=== PATIENT | male | born 1955 | race African-American/Black ===

== ENCOUNTER 2017-11-09 17:17 | Inpatient (IN) | payer OTHER, SELFPAY ==
[~2017-11-09 17:17] MED LIST: Dexamethasone 20 MG/5 ML VIAL ONE; Lidocaine 1% PF 5 ML VIAL ONE; Ondansetron HCl/PF 4 MG/2 ML Vial ONE; PROPOFOL 200 MG/20 ML VIAL ONE; Succinylcholine Chloride 20 MG/ML 10 ml SYRINGE FS ONE
[2017-11-09] MEDS ORDERED: Ondansetron HCl/PF 4 MG/2 ML Vial IVP PRN ×2 (18:51→22:29)
[2017-11-09] MEDS ORDERED: Dextrose 50% Abboject 50 ML SYRINGE SLOW IVP PRN (18:51)
[2017-11-09] MEDS ORDERED: Dextrose 5% in Water 1,000 ML IV PRN (18:51)
[2017-11-09] MEDS ORDERED: Ondansetron ODT 4 MG TAB PO PRN (18:51)
[2017-11-09 19:05] LABS: #Lymphocytes 1.4 thou/uL (1.20-3.40); #Monocytes 0.9 thou/uL (0.11-0.59); #Neutrophils 15.4 thou/uL (1.40-6.50); %Basophils 0.3 % (0.0-1.0); %Monocytes 5.2 % (0.0-10.0); %Neutrophils 86.6 % (42.0-75.0); Hemoglobin 15.7 g/dL (14.0-18.0); Mean Corpuscular HGB CONC 34.6 g/dL (32.0-36.0); Mean Corpuscular Hemoglobin 33.4 pg (27.0-31.0); Mean Corpuscular Volume 96.7 fL (78.0-98.0); Mean Platelet Volume 7.3 fL (7.4-10.4); Platelet Count 236 thou/uL (130-400); RBC Distribution Width 12.7 % (11.5-14.5); Red Blood Cell (RBC) Count 4.68 mill/uL (4.70-6.10); White Blood Cell (WBC) Count 17.8 thou/uL (4.8-10.8)
[2017-11-09 19:25] LABS: ALT (SGPT) 21 U/L (8-55); AST (SGOT) 28 U/L (5-34); Albumin 4.7 g/dL (3.5-5.0); Alkaline Phosphatase 62 U/L (40-150); Anion Gap 18 mmol/L (10-20); BUN (Urea Nitrogen) 21 mg/dL (8.4-25.7); Bilirubin, Total 0.5 mg/dL (0.2-1.2); CK (CPK) 315 U/L (30-200); Calc. Creatinine Clearance 0 mL/min (70-130); Calcium 9.9 mg/dL (7.8-10.44); Carbon Dioxide 20 mmol/L (22-29); Chloride 105 mmol/L (98-107); Estimated GFR-MDRD 69; Glucose 110 mg/dL (70-105); Potassium 4.3 mmol/L (3.5-5.1); Protein, Total 7.7 g/dL (6.0-8.3); Sodium 139 mmol/L (136-145)
[2017-11-09] MEDS ORDERED: Sodium Bicarbonate 100 MEQ in Dextrose 5% in Water 1,000 ML IV SCH (19:30)
[2017-11-09] MEDS ORDERED: hydrALAZINE 20 MG/ML VIAL SLOW IVP PRN (19:30)
--- NOTE | 2017-11-09 20:19 | CT ---
CT LEFT UPPER EXTREMITY NONCONTRAST: 11/09/2017 HISTORY: A 62-year-old male status post acute traumatic injury to the left upper extremity. This level II trauma report was called to Dr. Cabral, by telephone, by Dr. Allison, at 7:22 p.m., on 10/17. TECHNIQUE: Level of coverage from the mid humeral diaphysis to the mid forearm. FINDINGS: There is a comminuted fracture beginning at the distal diaphysis of the humerus, extending to the dis richmond metaphysis, with significant rotation, angulation, and displacement. There are nondisplaced frac ture lucencies of the distal metaphysis, involving the lateral condyle. No disruption/step-off of th e articular surfaces involving the ulna or the radius. No dislocation. There are multifocal pockets of subcutaneous air surrounding the fracture. IMPRESSION: 1. Acute, traumatic, comminuted, significantly displaced fracture of the distal humeral metadiap hysis. 2.Subcutaneous emphysema indicates penetrating trauma also. CODE CR POS: OTONIEL
--- NOTE | 2017-11-09 20:22 | RAD ---
PORTABLE FRONTAL AND LATERAL IMAGING OF THE LEFT HUMERUS: 11/09/2017 HISTORY: Injury. Trauma. Pain. COMPARISON: None. FINDINGS: There is a comminuted distal left humerus fracture with multiple displaced osseous fragments. The fr acture appears to extend into the left elbow joint. There is subcutaneous gas at the fracture site, consistent with an open fracture. There is no evidence for dislocation of the left elbow joint. The distal fracture fragment of the distal humerus is displaced medially by at least 2-3 cm, and demonst rates proximal displacement and demonstrates medial angulation. IMPRESSION: Markedly comminuted and displaced open fracture of the distal left humerus with extension into the le ft elbow joint. POS: MUKESH
[2017-11-09] MEDS: Sodium Chloride 0.9% 1,000 ML IV SCH (20:25)
--- NOTE | 2017-11-09 20:27 | RAD ---
FRONTAL RADIOGRAPH CHEST: 11/09/2017 HISTORY: Crush injury. COMPARISON: None. FINDINGS: There is increased linear interstitial density noted bilaterally. No pneumothorax or pleural fluid i s seen, and there is no lobar consolidation or alveolar edema. The lungs appear hyperinflated. IMPRESSION: Hyperinflated lungs with increased interstitial density. Findings suggest chronic obstructive pulmon kareem disease. No acute findings are noted. POS: MUKESH
--- NOTE | 2017-11-09 20:35 | RAD ---
LEFT ELBOW TWO VIEWS: 11/09/2017 HISTORY: Trauma. Pain. COMPARISON: None. FINDINGS: There is a comminuted, open fracture of the distal left humerus. The fracture line extends into the region of the articular surface of the distal left humerus. No evidence for elbow joint dislocation. IMPRESSION: Comminuted and displaced open distal left humerus fracture with extension into the left elbow joint. CT recommended. POS: MUKESH
[2017-11-09] MEDS ORDERED: Promethazine HCl 25 MG/ML VIAL IM PRN (22:29)
[2017-11-09] MEDS ORDERED: Promethazine HCl 25 MG/ML VIAL SLOW IVP PRN (22:29)
[2017-11-09] MEDS ORDERED: Succinylcholine Chloride 20 MG/ML 10 ml SYRINGE FS ONE (22:37)
[2017-11-09] MEDS ORDERED: HYDROmorphone 0.5 MG/0.5 ML SYRINGE ONE (22:37)
[2017-11-09] MEDS ORDERED: Milk Of Magnesia 30 ML UDCUP PO PRN (22:44)
[2017-11-09] MEDS ORDERED: Fentanyl 100 MCG/2 ML VIAL SLOW IVP PRN (22:44)
[2017-11-09] MEDS ORDERED: HYDROcodone/Acetaminophen 10/325 mg Tablet PO PRN (22:44)
[2017-11-09] MEDS ORDERED: Communication Order-Pharmacy FS SCH (22:45)
[2017-11-09] MEDS ORDERED: Ondansetron HCl/PF 4 MG/2 ML Vial ONE (23:21)
--- NOTE | 2017-11-09 23:57 | CON ---
DATE OF CONSULTATION: 11/09/2017 CHIEF COMPLAINT: Left arm pain. HISTORY OF PRESENT ILLNESS: Mr. Gibbs is a 62-year-old male who was injured at work. His arm was cru shed in machinery. This was a very high pressure device. He sustained a laceration over the left up per arm as well as a humerus fracture. He was seen initially at [facility] then transf erred for further care. He had a questionable pulse at one point; however, this has recovered upon a rrival to [facility]. He has had normal vascular status and normal neurologic status. He h as been evaluated by Dr. Ayon as well as the trauma team already. The patient's arm has been spl inted. He is resting comfortably. He denies any numbness or tingling or other injuries. He is ambi dextrous. 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 PAST MEDICAL HISTORY: The patient reports being healthy. He denies active medical problems. MEDICATIONS: He takes no medications. ALLERGIES: No known drug allergies. FAMILY MEDICAL HISTORY: Noncontributory. PAST SURGICAL HISTORY: Negative. PSYCHIATRIC HISTORY: Negative. SOCIAL HISTORY: The patient smokes cigarettes. He drinks alcohol. He denies drug use. CURRENT MEDICATIONS: None. REVIEW OF SYSTEMS: Positive for left arm pain, otherwise negative 10-point review of systems. PHYSICAL EXAMINATION: VITAL SIGNS: Blood pressure is 165/94, pulse is 92, respiratory rate 18, afebrile. Temperature is 9 6.7. GENERAL: He is sitting upright in no apparent distress, talkative. HEENT: Normocephalic, atraumatic. RESPIRATORY: Breathing comfortably. ABDOMEN: Soft, nontender, nondistended. CARDIOVASCULAR: Pulses peripherally palpable. MUSCULOSKELETAL: The patient's left arm is splinted. He has intact sensation in the hand. Normal s ensation in the first through fifth digits. Two seconds capillary refill. He has a bounding palpabl e radial pulse. He can do a thumbs up and finger extension. IMAGES: X-rays of the humerus demonstrate a comminuted fracture just above the olecranon fossa of th e distal humerus. This is transverse in nature. There is extension into the articular surface as we ll. IMPRESSION: Open left distal humerus fracture from crush injury. PLAN: At this point, the patient will need to go to the operating room. He will need irrigation and debridement of the wound to hopefully prevent infection. He will also need open reduction and inter nal fixation of the fracture to restore stability and promote healing. He has elected to proceed wit h this. He has received pain medication as well as intravenous antibiotics. He will be admitted to the hospital. He will be n.p.o. until after surgery. He is aware of prolonged recovery process and the possibility of nerve injury, vascular injury, nonunion, malunion, infection, and others.
--- NOTE | 2017-11-10 00:07 | HP ---
DATE OF ADMISSION: 11/09/2017 ATTENDING PHYSICIAN: Dr. García. TRAUMA ACTIVATION: Level 2. 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 He was originally seen at [facility] and found to have a left dist al humerus fracture. He was transferred to our facility for higher level of care. Dr. Zeeshan jacinto Orthopedic Surgery was notified and Trauma Services was asked to admit. Upon my evaluation, the luiz hernadez has a chief complaint of left upper extremity pain in the area of the elbow, rated as a 6/10 an d constant. Previous pain medications have helped, but are not wearing off. The patient did receive tetanus and Ancef. PAST MEDICAL HISTORY/ALLERGIES: None. HOME MEDICATIONS: None. CHRONIC MEDICAL ILLNESSES: Patient denies. SURGICAL HISTORY: Patient denies. 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 He drinks 3-4 beers daily. He is a pack per day smoker f or 30 years. Denies illicit drug use. FAMILY HISTORY: Patient denies any family history of any chronic medical illnesses. REVIEW OF SYSTEMS: A 10-point review of systems was performed and negative except as indicated in th e HPI. PHYSICAL EXAMINATION: VITAL SIGNS: Pulse 92, blood pressure 184/96, respirations 20, O2 sat 100% on room air, temperature 98.8. GENERAL: A well-developed male in no acute distress, resting in bed. HEAD: Normocephalic, atraumatic. EYES: Pupils are PERRL. Extraocular movements are intact. NECK: Supple. Trachea is midline. CHEST: Atraumatic. Normal work of breathing, symmetric rise. Lungs are clear to auscultation bilat erally. ABDOMEN: Atraumatic, soft, nontender, nondistended. Bowel sounds are positive. MUSCULOSKELETAL: Right upper extremity within normal limits. Left upper extremity is splinted from the outside facility. There is some sanguinous staining of the splint. He is neurovascularly intact distal to the side of his injury. Range of motion is limited secondary to pain in splint; however, patient does have intact sensation, abduction, and adduction as well as thumb to fifth digit. NEUROLOGIC: GCS is 15. No focal deficit is noted. LABORATORY FINDINGS: WBC 7.8, hemoglobin 15.7, hematocrit 45.3, platelet count 236. Sodium 139, pot assium 4.3, chloride 105, carbon dioxide 20, BUN 21, creatinine 1.28, glucose 110, AST and ALT within normal limits. CK 315. RADIOGRAPHIC FINDINGS: Official read is pending for CT of the left upper extremity without contrast, left humerus x-ray, left elbow x-ray, and a chest x-ray. Chest x-ray demonstrates no acute cardiopu lmonary process per my review. There is obvious distal humerus fracture, which is comminuted and dis placed. ASSESSMENT: 1. Status post crush injury to the left upper extremity. 2. Open left distal humerus fracture. 3. Acute traumatic pain. 4. Hypertension, present on admission. PLAN: Orthopedic Surgery is seeing and evaluating the patient. They plan for operative intervention tonight. We will need 48 hours postop IV antibiotics per their recommendations. Patient's last int kayleigh was 10:00 a.m. this morning. IV analgesics and gentle IV fluid hydration until postoperative. R echeck CK in the morning. Postop pain management with p.o. analgesia. DVT and gastritis prophylaxis as appropriate. Follow up official reads for imaging. Plans for admission were discussed with the patient, who vocalizes understanding. All questions were answered at the time of this dictation. Eldon martínez attending has been notified of admission.
[2017-11-10] MEDS ORDERED: HYDROmorphone 0.5 MG/0.5 ML SYRINGE ONE ×2 (00:13→00:30)
[2017-11-10] MEDS: CEFAZOLIN/Water 2 GM/20 ML SYRINGE SLOW IVP SCH ×4 (00:30→16:15)
[2017-11-10] MEDS: Famotidine 20 MG TAB PO SCH ×3 (00:38→20:31)
[2017-11-10] MEDS: cefTRIAXone\\ROCEPHIN 1 GM in Sodium Chloride 0.9% 100 ML IVPB SCH ×2 (00:38→20:31)
[2017-11-10] MEDS: Oxazepam 10 MG CAP PO SCH ×5 (00:39→22:56)
[2017-11-10] MEDS: Senokot S 8.6-50 MG TAB PO SCH ×3 (00:39→20:32)
[2017-11-10 00:53] VITALS: BMI 23.0
[2017-11-10] MEDS ORDERED: Fentanyl 100 MCG/2 ML VIAL ONE (00:58)
[2017-11-10] MEDS ORDERED: Labetalol HCl 100 MG/20 ML VIAL ONE (01:41)
[2017-11-10] MEDS ORDERED: Labetalol HCl 100 MG/20 ML VIAL SLOW IVP SCH ×2 (01:41→02:15)
[2017-11-10] MEDS ORDERED: Ondansetron HCl/PF 4 MG/2 ML Vial IVP PRN (01:47)
[2017-11-10] MEDS ORDERED: Promethazine HCl 25 MG/ML VIAL IM PRN (01:47)
[2017-11-10] MEDS ORDERED: Promethazine HCl 25 MG/ML VIAL SLOW IVP PRN (01:47)
[2017-11-10] MEDS ORDERED: Meperidine HCl/PF 25 MG/ML VIAL SLOW IVP PRN (01:47)
[2017-11-10] MEDS: Acetaminophen 500 MG TAB PO SCH ×5 (04:20→17:14)
[2017-11-10] MEDS: traMADol HCl 50 MG TAB PO SCH ×5 (04:20→17:15)
[2017-11-10] MEDS: Sodium Chloride 0.9% 1,000 ML IV SCH ×4 (04:21→22:56)
[2017-11-10 05:22] LABS: #Lymphocytes 0.5 thou/uL (1.20-3.40); #Monocytes 0.2 thou/uL (0.11-0.59); #Neutrophils 11.6 thou/uL (1.40-6.50); %Basophils 0.1 % (0.0-1.0); %Lymphocytes 4.4 % (21.0-51.0); %Monocytes 1.7 % (0.0-10.0); %Neutrophils 93.7 % (42.0-75.0); Hemoglobin 14.2 g/dL (14.0-18.0); Mean Corpuscular HGB CONC 33.6 g/dL (32.0-36.0); Mean Corpuscular Hemoglobin 32.9 pg (27.0-31.0); Mean Corpuscular Volume 98.1 fL (78.0-98.0); Mean Platelet Volume 7.7 fL (7.4-10.4); Platelet Count 202 thou/uL (130-400); RBC Distribution Width 12.6 % (11.5-14.5); White Blood Cell (WBC) Count 12.4 thou/uL (4.8-10.8)
[2017-11-10 05:49] LABS: Anion Gap 15 mmol/L (10-20); BUN (Urea Nitrogen) 20 mg/dL (8.4-25.7); CK (CPK) 790 U/L (30-200); Calc. Creatinine Clearance 74 mL/min (70-130); Calcium 9.3 mg/dL (7.8-10.44); Carbon Dioxide 22 mmol/L (22-29); Chloride 106 mmol/L (98-107); Estimated GFR-MDRD 81; Glucose 119 mg/dL (70-105); Magnesium 2.2 mg/dL (1.6-2.6); Phosphorus 4.2 mg/dL (2.3-4.7); Potassium 4.4 mmol/L (3.5-5.1); Sodium 139 mmol/L (136-145)
--- NOTE | 2017-11-10 06:52 | OP ---
DATE OF OPERATION: 11/09/2017 OPERATIONS: 1. Open reduction and internal fixation of left distal humerus fracture. 2. Irrigation and debridement of left open distal humerus fracture. PREOPERATIVE DIAGNOSIS: Displaced left open distal humerus fracture. POSTOPERATIVE DIAGNOSIS: Displaced left open distal humerus fracture. COMPLICATIONS: None. ESTIMATED BLOOD LOSS: Minimal. SURGEON: Ru Byers MD ANESTHESIA: General plus local. INDICATIONS: Mr. Gibbs is a 62-year-old male who has been injured at work. He had a crushing injury to the left upper extremity. He fractured the distal humerus. He had an open wound. At this point, he was indicated for surgical intervention to irrigate the wound and provide internal fixation. Ris ks have been reviewed in detail. He has elected to proceed. The patient's risks do include nerve or vascular injury, infection, hardware failure, nonunion and others. DESCRIPTION OF PROCEDURE: Mr. Gibbs was identified in the preoperative holding area. His correct ext remity was marked. He was carried to the operating room. He was positioned supine. General anesthe faby was induced. A multidisciplinary timeout was performed. The left upper extremity was prepped an d draped in sterile fashion. We began the procedure with extension of the patient's traumatic wound. We extended this proximally and distally. We dissected down through the subcutaneous tissues. We thoroughly irrigated with copi ous lavage. Three liters were used. We irrigated the bone as well. Once we had a clean wound, we l oosely closed this with a 3-0 nylon suture. At this point, we then performed a posterior approach to the distal humerus. We then dissected down through the subcutaneous tissues to the triceps tendon. We mobilized the tendon medially and lateral ly. We protected the ulnar nerve medially. A David drain was placed around this. We were able to visualize the fracture medially and laterally. There was significant comminution. We made a small split in the mid substance of the triceps as well, allowing visualization over the middle of the darryl kaila. We used these 3 windows to reduce our fracture. Again, we irrigated. We then teased the fract ure back together using multiple K-wires and reduction clamps. We were able to hold the fracture maksim k into anatomic position. Once we had an anatomic reduction and we checked this on x-ray images, we placed a posterolateral and a medial plate on the distal humerus. Multiple screws were placed proxim ally and distally, locking the plate to the bone and holding our fracture fragments. We took x-ray i mages confirming this. There were no hardware complications. We again thoroughly irrigated once all hardware was placed. We then closed appropriately in layers. A sterile dressing was applied and a splint was placed. The patient was taken to the recovery room in good condition without complication . IMPLANTS: Synthes distal humerus, elbow medial, and posterior lateral, variable angle locking plates were used.
--- NOTE | 2017-11-10 08:37 | RAD ---
INTRAOPERATIVE FLUOROSCOPY LEFT ELBOW: Date: 11/10/17 HISTORY: Left elbow fracture. Open reduction and internal fixation. EXPOSURE: 20.1 seconds. 0.38 mGy*cm^2. FINDINGS: Two fluoroscopic images demonstrate a distal humerus fracture. There is evidence of internal fixation hardware. Fracture lucency and soft tissue emphysema is identified. IMPRESSION: Fluoroscopy as above. POS: OTONIEL
[2017-11-10] MEDS ORDERED: Lisinopril 20 MG TAB PO SCH (09:00)
[2017-11-10] MEDS: Folic Acid 1 MG TAB PO SCH (09:41)
[2017-11-10] MEDS: Multivitamin W/ Minerals 1 TAB PO SCH (09:42)
--- NOTE | 2017-11-10 12:29 | CON ---
HAND/MICROVASCULAR CONSULTATION DATE OF CONSULTATION: 11/09/2017 DATE OF INJURY: 11/09/2017 CHIEF COMPLAINT: Left distal arm/elbow injury with open wound and bleeding. 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 He reported to [facility] immediately after that, and from there, I was called in office and the [facility] room doctor informed me that they would like to send the patient to our facility, because it wa s a higher level of care than what was available at [facility] and that the orthopedist on duty felt that there might be a possible neurovascular injury and was not comfortable with the pa tient. This was because the emergency room physician reported to me that the patient had poor radial pulse a nd radial nerve was not working. He did describe that the patient had a grade 1-2 injury with crush and knew about the crush injury. He had already given the patient tetanus and antibiotics appropriat moreno. For this reason, after Dr. Carranza, the trauma person, on duty informed that I should be made aware in case the patient did have neurovascular injury, and patient was then transferred to this facility. PAST MEDICAL HISTORY: No history of previous injury to this side. Denies previous organ failure or problems. ADMISSION LABORATORY EVALUATION: Showed the patient's blood pressure elevated to 180 and he has a cr eatinine 1.9. PHYSICAL EXAMINATION: He is appropriate age male, -[place]. He has no cervical or cranial n erve deficit. He has, on the right side, full active range of motion of shoulder, and he has no ster nal, cervical, thoracic, lumbar, clavicle, supra- or infraclavicular, proximal humerus, or proximal f orearm tenderness. He has no interosseous, aep-yk-rswdot ulnar and radial shaft abnormality, no carp al abnormality. No metacarpal or phalangeal abnormalities to include the thumb. This is at the left and right side. Today, the patient has full extensor pollicis longus function and full digit extension of the MP join ts and IP joints without any evidence of weakness. He is in a splint. I made a small window i n his dressing into the lateral distal humerus. He has edema and some deformity, and a 3-cm la ceration midlateral line, approximately 5 cm proximal to the olecranon. Olecranon itself was not ten ricky. RADIOGRAPHS: Radiographs were taken here in this hospital, because the ones from the previous facili ty were not available at the time of my evaluation, approximately 1835 hours, date of injury, reveale d that he has a crush injury to the mid portion of the olecranon fossa with a four part intra-articul ar fracture with 2 different parts, did not see evidence of intra-articular split, but it is highly p ossible one view. The olecranon itself and radius did not appear to be involved including the radial head and the proximal radioulnar joint. ASSESSMENT: Grade 2 open fracture with no evidence of radial or ulnar artery abnormality, the patien t had mild or impalpable radial pulse today. At the time of my evaluation, he also had intact radial nerve. Now, he is splinted. RECOMMENDATION: My recommendation is that the patient be evaluated for fracture debridement today, w hich is the emergent part of his problem. Dr. Byers, Trauma Surgeon, will be made aware of the p atient and surgical intervention will occur. I will be available at all times in this patient's care , but there is no evidence of neurological/vascular disease and we will evaluate the patient afterwar ds as he could have a partial nerve lesion, which may become complete.
--- NOTE | 2017-11-10 13:04 | PRG-2 ---
DATE OF SERVICE: 11/10/2017 SUBJECTIVE: This is a 62-year-old male, status post a crush injury to his left upper extremity with an open left distal humerus fracture, postop day #1, status post repair by Dr. Byers with Orthope dics. 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 The patient states that his pain is well controlled. He really has no pain this antonette hall Patient is told that he has a high blood pressure. He says that his brother has high blood press ure, but he has never been told that he has any other medical problems. The patient is recommended t o begin antihypertensive therapy and he is in agreement with that plan. Patient, otherwise, had no o ther complaints this morning. OBJECTIVE: VITAL SIGNS: BP 164/82, temperature 97.7, respirations were 18, pulse was 78, oxygen saturation was 98% on room air. GENERAL: A well-developed male in no acute distress, resting in a chair. HEAD: Normocephalic, atraumatic. NECK: Supple. Trachea is midline. RESPIRATORY: Lungs are clear to auscultation. No wheezing. ABDOMEN: Soft, nontender, nondistended. Bowel sounds are positive. MUSCULOSKELETAL: His left upper extremity is bandaged, clean and dry and currently in a sling. He i s neurovascularly intact distal to the site of injury. NEUROLOGIC: GCS of 15. No focal deficits noted. LABORATORY FINDINGS: White blood cell count 12.4, hemoglobin 14.2, hematocrit 42.2, platelet count 2 02. Sodium 139, potassium 4.4, chloride 106, bicarbonate 22, BUN 20, creatinine 1.12, creatine kinas e 790. RADIOGRAPHIC FINDING: Patient had an elbow x-ray that showed 2 fluoroscopic images demonstrate a dis richmond humerus fracture. There is evidence of internal fixation hardware. Fracture lucency and soft ti ssue emphysema is identified. ASSESSMENT: 1. Status post crush injury to left upper extremity. 2. Open left distal humerus fracture, status post repair, open reduction and internal fixation, post operative day #1. 3. Acute traumatic pain. 4. Hypertension. PLAN: Orthopedic Surgery has repaired the patient and stated that they would like him to stay as an inpatient for another night for 48 hours of antibiotics. We will continue his pain regimen currently , as he does state that he has had good pain control. His CK did increase from 315 to 790 to be expe cted with the mechanism of injury and a urine output will be more closely monitored over the next 24 hours. The patient was counseled on the initiation of blood pressure medicine and he is in agreement with that. Patient did receive 1 dose of lisinopril this morning; however, his brother does take a combination pill or just takes a strictly hydrochlorothiazide, so we have opted to initiate a combina tion therapy of lisinopril/hydrochlorothiazide going forward to track the goal of his blood pressure. The patient will need to establish with a PCP following this hospitalization to further manage his hypertension. All questions were answered at the time of this dictation. Dr. Carranza, [facility], has seen and evaluated the patient at this time and he is in agreement with this plan.
[2017-11-11] MEDS: traMADol HCl 50 MG TAB PO SCH ×3 (00:22→12:25)
[2017-11-11] MEDS: Acetaminophen 500 MG TAB PO SCH ×3 (00:22→12:26)
[2017-11-11] MEDS: CEFAZOLIN/Water 2 GM/20 ML SYRINGE SLOW IVP SCH ×2 (00:23→08:49)
[2017-11-11] MEDS: Sodium Chloride 0.9% 1,000 ML IV SCH ×2 (05:08→11:32)
[2017-11-11] MEDS: Oxazepam 10 MG CAP PO SCH (05:09)
[2017-11-11 06:06] LABS: Anion Gap 13 mmol/L (10-20); BUN (Urea Nitrogen) 13 mg/dL (8.4-25.7); CK (CPK) 1104 U/L (30-200); Calc. Creatinine Clearance 112 mL/min (70-130); Calcium 8.9 mg/dL (7.8-10.44); Carbon Dioxide 24 mmol/L (22-29); Chloride 104 mmol/L (98-107); Estimated GFR-MDRD Greater than 90; Glucose 82 mg/dL (70-105); Magnesium 2.2 mg/dL (1.6-2.6); Phosphorus 3.5 mg/dL (2.3-4.7); Potassium 3.6 mmol/L (3.5-5.1); Sodium 137 mmol/L (136-145)
[2017-11-11] MEDS ORDERED: Potassium Chloride 20 MEQ TAB PO SCH (07:30)
[2017-11-11] MEDS: Folic Acid 1 MG TAB PO SCH (08:52)
[2017-11-11] MEDS: Famotidine 20 MG TAB PO SCH (08:52)
[2017-11-11] MEDS: Senokot S 8.6-50 MG TAB PO SCH (08:53)
[2017-11-11] MEDS: Multivitamin W/ Minerals 1 TAB PO SCH (08:53)
[2017-11-11] MEDS ORDERED: Lisinopril/Hydrochlorothiazide 20 mg/12.5 mg Tablet PO SCH (09:00)
[2017-11-11 12:04] VITALS: BP 130/75; TEMP 98.1
--- NOTE | 2017-11-12 01:03 | DIS ---
DATE OF ADMISSION: 11/09/2017 DATE OF DISCHARGE: 11/11/2017 ADMITTING PHYSICIAN: Humberto García MD DISCHARGING PHYSICIAN: Karthik Carranza DO CONSULTING PHYSICIANS: 1. uR Byers MD, Orthopedics. 2. Jose Daniel Ayon MD, Orthopedics. REASON FOR HOSPITALIZATION: Crush injury to left distal arm. HOSPITAL DIAGNOSES: 1. Crush injury to left arm. 2. Open left distal humerus fracture. PROCEDURES: 1. Open reduction internal fixation of left distal humerus fracture. 2. Irrigation and debridement of left open distal humerus fracture. DATE OF OPERATION: 11/09/2017. SURGEON: Ru Byers MD DISCHARGE CONDITION: Good. DISPOSITION: Home. DISCHARGE MEDICATIONS: 1. Aspirin 81 mg oral twice daily. 2. Shannon 10/325, 1-2 oral every 4 hours as needed. 3. Lisinopril/hydrochlorothiazide 20/12.5, one tab oral daily. ACTIVITY: As tolerated, nonweightbearing in left upper extremity. THERAPY: None. DIET: Regular. FOLLOWUP: 1. Dr. Byers in 10-[address] Carranza in 1 week with repeat CPK. BRIEF HISTORY OF HOSPITALIZATION: Mr. 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 He was transported to [facility] and subsequently transferred to [facility] for a higher level of care. He wa s admitted to the hospital by Trauma Services. Dr. Byers, Orthopedics; and Dr. Ayon, Orthope dics were consulted. The patient was taken to the OR by Dr. Byers for repair of his open fractur e. He was noted to have an elevated CK. He was maintained on IV fluids. On postoperative day #2, chelsie briscoe was tolerating a regular diet. He had had adequate oral fluid intake. His pain was well controlle d. He was also noted to be hypertensive. He had no past medical history and did not have an establi shed PCP. He was started on antihypertensives. He was given a referral to [facility] provider jarred cardenas. He reports that [facility]; however, if he could not, he would establish care with a local PCP. He will need to establish care to follow up with his hype rtension. He is to follow up in [address] Carranza with repeat labs. He is to follow up in 10-[address] Byers. He was given a prescription for Shannon for pain management by Dr. Byers . He was given a prescription for lisinopril, hydrochlorothiazide by Trauma Services. He reports un derstanding of discharge instructions. He was given followup information and strict return precautio ns. The patient was seen and examined with Dr. Carranza, who agrees with discharge.
== END 2017-11-11 12:57 | disposition home or self-care (01) | DRG 494 ==
LOC: ERS 17:17 → SDC/OP 20:30 → SURG B 20:55
PROVIDERS: ADMIT Surgery; ATTEND Surgery
PROC: 0PSG04Z Reposition Left Humeral Shaft with Internal Fixation Device, Open Approach (ICD-10-PCS; principal; 2017-11-09)
DX: S42.402B Unspecified fracture of lower end of left humerus, initial encounter for open fracture (principal); W23.0XXA Caught, crushed, jammed, or pinched between moving objects, initial encounter; Y93.89 Activity, other specified; Y92.89 Other specified places as the place of occurrence of the external cause; Y99.0 Civilian activity done for income or pay; F17.210 Nicotine dependence, cigarettes, uncomplicated
CPT/HCPCS: 36415; 71045; 76001; 80048; 80053; 82550; 83735; 84100; 85025; 86850; 86900; 86901; 93005; 96361; 96374; C1713; G0390; G8978-GP-CI; G8979-GP-CI; G8980-GP-CI; G8987-GO-CI; G8988-GO-CI; G8989-GO-CI; J0360; J0696; J1100; J1170; J2001; J2270; J2405; J2704; J3010; J7050